=== PATIENT | female | born 1950 | race Caucasian/White ===

== ENCOUNTER 2020-04-21 14:17 | Emergency (ER) | payer OTHER ==
[~2020-04-21] VITALS: Ht 157.5 cm; Wt 54.4 kg
[2020-04-21] MEDS ORDERED: ADVIL200 MG (15:14)
[2020-04-21] MEDS ORDERED: AMLODIPINE BESYL5 MG PO (15:14)
[2020-04-21] MEDS ORDERED: COZAAR100 MG PO (15:14)
[2020-04-21] MEDS ORDERED: ASPIRIN81 MG PO (15:14)
[2020-04-21] MEDS ORDERED: OMEPRAZOLE20 MG PO (15:15)
[2020-04-21] MEDS ORDERED: VITAMIN C100 MG PO (15:15)
[2020-04-21] MEDS ORDERED: VITAMIN D350 MC3 PO (15:16)
--- NOTE | 2020-04-21 23:59 | EKG ---
[facility] [address] [place], [place] [address] Signed Normal sinus rhythm Possible Left atrial enlargement Low voltage QRS Cannot rule out Anteroseptal infarct , age undetermined Abnormal ECG Confirmed by RENETTA CMAARILLO MD ([id number]) on 04/21/2020 11:58:59 PM Electronically Signed By: RENETTA CAMARILLO MD 04/21/20 2359 PATIENT NAME: DEEJAY CHEATHAM Electrocardiogram DATE OF : 48 PHYSICIAN: RENETTA CAMARILLO MD REPORT #: [id number] REPORT IS CONFIDENTIAL AND NOT TO BE RELEASED WITHOUT AUTHORIZATION
== END 2020-04-21 18:00 | disposition home or self-care (01) ==
LOC: ED 14:17
DX: R07.89 Other chest pain (principal); I10 Essential (primary) hypertension; Z79.899 Other long term (current) drug therapy; Z79.82 Long term (current) use of aspirin
CPT/HCPCS: 71045; 71046; 80053; 83735; 84484; 85025; 93005; 93010; 96374; 99285-25; A9270; J2270